=== PATIENT | female | born 1985 | race Caucasian/White ===

== ENCOUNTER 2025-01-15 09:55 | Outpatient (CLI) | payer OTHER, SELFPAY ==
--- NOTE | ~2025-01-15 | MM_ITS ---
EXAMINATION: MM screening marina BI w tawanna HISTORY: Screening TECHNIQUE: Craniocaudal and mediolateral oblique 3-D tomosynthesis images were obtained and synthetic 2-D images were generated. CAD analysis was submitted and interpreted. COMPARISON: No prior mammogram is available for comparison. BREAST PARENCHYMAL COMPOSITION: There are scattered areas of fibroglandular density. FINDINGS: Punctate calcifications are detected bilaterally, morphologically benign in appearance. Stable parenchymal pattern without suspicious microcalcifications, architectural distortion, discrete masses or significant asymmetry. IMPRESSION: 1. No mammographic evidence of malignancy. 2. Recommend routine screening mammography in one year. BI-RADS Category 2: Benign finding(s). Reviewed, dictated and finalized at location A.
--- OUTSIDE RECORDS SUMMARY | 2025-01-15 11:07 | XMS_ITS | Encounter Summary ---
Author Organization [facility] Address [address] [place] [address] Care Team Providers Care Concrete Pipe Making Machine Operator Name Role Phone Aranza Rico MD Primary Care Provider [phone] Reason for Visit * Reason Onset Date Comments Forms 12/17/2024 Encounter Details Date Type Department Care Team (Latest Contact Info) Description 12/17/2024 [employer] Message Enc [facility] Multis[facility]ialty Care - [place] [address] [address] [place] [address] Aranza Rico MD [address] [place] [address] [address] [place] [address] Letter of Medical Necessity Social History Tobacco Use Types Packs/Day Years Used Date Smoking Tobacco: Former Cigarettes 0.5 2 2 004 - 07/23/2008 Smokeless Tobacco: Never Comments:Counseled by Dr. Shania mata. Alcohol Use Standard Drinks/Week Comments Not Currently 0 (1 standard drink = 0.6 oz pur e alcohol) PHQ-2 Answer Date Recorded Patient Health Questionnaire-2 Score 0 10/07/2024 Comments No Sex and Gender Information Value Date Recorded Sex Assigned at Female 01/08/2025 9:05 AM CDT Legal Sex Female 11:43 AM CDT Gender Identity Female 01/08/2025 9:05 AM CDT Sexual Orientation Not on file documented as of this encounter Progress Notes * Meli Stringer MA - 12/18/2024 5:29 PM CST [employer] message sent with letter. 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 [employer] documented in this encounter Plan of Treatment Upcoming Encounters Date Type Department Care Team (Late st Contact Info) Description 07/11/2025 8:40 AM CDT Office Visit [facility] [place] [address] [address] [place] [address] Aranza Rico MD [address] [place] [address] [id number] documented as of this encounter Visit Diagnoses Not on filedocumented in this encounter Additional Health Concerns Assessment Noted Time PHQ-9 Depression Total Score: 1 10/07/20 24 12:45 PM [employer]OOKSE[employer] BLINDSTITCH documented as of this encounter Care Teams Concrete Pipe Making Machine Operator Relationship Specialty Start Date End Date Aranza Rico MD [address] [place] [address] [id number] PCP - General INTERNAL MEDICINE 07/18/24 documented as of this encounter
--- OUTSIDE RECORDS SUMMARY | 2025-01-15 11:07 | XMS_ITS | Clinical Summary ---
Author Organization [facility] Address [address] [place] [address] Care Team Providers Care Chassis Engineer Name Role Phone Aranza Rico MD Primary Care Provider [phone] Allergies No known active allergies Medications betamethasone dipropionate 0.05 % cream 08/07/20 22 Active betamethasone dipropionate augmented (DIPROLENE-AF) 0.05 % cream APPLY TO AFFECTED AREAS OF BODY ONCE OR TWICE DAILY NEEDED RASH. 02/26/20 24 Active Multiple Vitamin (MULTI VITAMIN DAILY OR) Take 1 tablet by mouth daily. Active Continuous Glucose Sensor (FREESTYLE LILIBETH 3 PLUS SENSOR) MiscIndications: Type 2 diabetes mellitus with hyperglycemia, without long-term current use of insulin ([facility]) Use daily to check fasting blood sugar. Okay to substitute. 2 each 11/11/19 25 Active spironolactone (ALDACTONE) 100 MG tablet Take 1 tablet (100 mg total) by mouth daily. 12/17/19 25 Active semaglutide (RYBELSUS) 7 MG tabletIndication s:Diabetes Mellitus Take 1 tablet (7 mg total) by mouth daily. Indications : Diabetes 30 tablet 6 01/09/20 25 Active rosuvastatin (CRESTOR) 5 MG tabletIndication s:Type 2 diabetes mellitus with hyperglycemia, without long-term current use of insulin ([facility]) Take 1 tablet (5 mg total) by mouth nightly at bedtime. 30 tablet 5 01/09/20 25 Active Semaglutide (RYBELSUS) 3 MG TabIndications:D iabetes Mellitus Take 3 mg by mouth daily. Indications : Diabetes 30 tablet 10/07/20 24 025 Discontinued(Al ternate therapy) Semaglutide (RYBELSUS) 7 MG TabIndications:D iabetes Mellitus Take 7 mg by mouth daily. Indications : Diabetes 30 tablet 2 10/07/20 24 025 Discontinued(Re order) semaglutide (RYBELSUS) 7 MG tabletIndication s:Diabetes Mellitus Take 1 tablet (7 mg total) by mouth daily. Indications : Diabetes 30 tablet 2 01/09/20 25 025 Discontinued Active Problems No known active problems Encounters Date Type Department Care Team Description 01/08/2025 9:00 AM CDT Office Visit [place] [phone] [address] [address] [place] [address] Aranza Rico MD Diabetes; Hyperlipidemia 01/08/2025 Travel 01/01/2025 Scan [facility] Scanned, [facility] Dilated Eye Exam (SCAN) 12/17/2024 MyChart Message [place] [phone] [address] [address] [place] [address] Aranza Rico MD Letter of Medical Necessity 11/11/2024 Telephone [place] [address] [address] [facility] [address] [place] [address] Aranza Rico MD Orders 11/08/2024 Telephone [place] [phone] [address] [address] [place] [address] Aranza Rico MD Referral 11/08/2024 [facility] [place] [id number] [facility] [address] [place] [address] Aranza Rico MD Dietitian 10/21/2024 [facility] [address] [facility] [address] [place] [address] Aranza Rico MD mammogram scheduling from Last 3 Months Immunizations Name Administration Dates Next Due Influenza Adult (Generic) 08/08/2024,09/05/2019 Pneumococcal (Prevnar 20) 01/08/2025 Tdap (Generic) 06/16/2020 Family History Medical History Relation Comments Stroke Father Stroke December Relation Status Comments Father Social History Tobacco Use Types Packs/Day Years Used Date Smoking Tobacco: Former Cigarettes 0.5 2 2 004 - 07/23/2008 Smokeless Tobacco: Never Tobacco Cessation:Counseling Given: Yes Comments:Counseled by Dr. Rico. Alcohol Use Standard Drinks/Week Comments Not Currently 0 (1 standard drink = 0.6 oz pur e alcohol) PHQ-2 Answer Date Recorded Patient Health Questionnaire-2 Score 0 01/08/2025 Comments No Sex and Gender Information Value Date Recorded Sex Assigned at Female 01/08/2025 9:05 AM CDT Legal Sex Female 11:43 AM CDT Gender Identity Female 01/08/2025 9:05 AM CDT Sexual Orientation Not on file Last Filed Vital Signs Vital Sign Reading Time Taken Comments Blood Pressure 113/69 01/08/2025 9:06 AM CDT Pulse 71 01/08/2025 9:06 AM CDT Temperature 36.4 C (97.5 F) 01/08/2025 9:06 AM CDT Respiratory Rate 16 01/08/2025 9:06 AM CDT Oxygen Saturation 99% 01/08/2025 9:06 AM CDT Inhaled Oxygen Concentration - - Weight 72.8 kg (160 lb 9.6 oz) 01/08/2025 9:06 A M CDT Height 177.8 cm (5' 10 ) 01/08/2025 9:06 AM CDT Body Mass Index 23.04 01/08/2025 9:06 AM CDT Plan of Treatment Upcoming Encounters Date Type Department Care Team (Late st Contact Info) Description 07/11/2025 8:40 AM CDT Office Visit [facility] Multispecialty Care - [place] [address] [address] [place] [address] [place] [address] [place] [address] [address] [place] [address] Health Maintenance Due Date Last Done Comments Cervical Cancer Screening Pap Smear (Age 30 to 64) Every 3 Years 1983 Hepatitis B Vaccines (1 of 3 - 19+ 3-dose series) 2002 Cervical Cancer Screening Pap with HPV Testing (Age 30 to 64) Every 5 Years 2013 Cervical Cancer Screening with HPV 2013 COVID-19 Vaccine (2 - season) 2024 09/23/2021 Hemoglobin A1C 04/07/2025 10/07/2024, 06/0 01/2024, 12/26/2023, Additional history exists Annual Physical 10/07/2025 10/07/2024 Kidney Health Evaluation 10/07/2025 10/07/2024 Lipid Panel 10/07/2025 10/07/2024, 03/26/2024 Mammogram Screening 01/14/2026 01/15/2024, Diabetes: Retinopathy Eye Exam 01/01/2027 01/01/2025 DTaP, Tdap and Td Vaccines (2 - Td or Tdap) 06/16/2030 06/16/2020 Influenza Adult Completed 08/08/2024, 09/05/2019 Hepatitis C Completed 10/07/2024 PHQ-2 (Physician [place]) Completed 01/08/2025 Pneumococcal Vaccine: Pediatrics (0 to 5 Years) and At-Risk Patients (6 to 64 Years) Completed 01/08/2025 HPV Vaccines Aged Out No longer eligi ble based on patient's age to complete this topic Meningococcal B Vaccine Aged Out No l onger eligible based on patient's age to complete this topic Meningococcal Vaccine Aged Out No ayana brain eligible based on patient's age to complete this topic RSV Immunizations Under 20 Months Aged Out No longer eligible based on patient's age to complete this topic Procedures Procedure Name Priority Date/Time Associated Diagnosis Comments DIABETIC RETINOPATHY EXAM (NEGATIVE)(SCAN ORDER) Routine 01/01/2025 HEPATITIS C ANTIBODY Routine 10/07/2024 11:49 AM PUBLIC SAFETY DISPATCHER Annual physical exam Establishing care with new doctor, encounter for General medical exam Drug therapy Encounter for hepatitis C screening test for low risk patient LIPID PANEL Routine 10/07/2024 11:49 AM PUBLIC SAFETY DISPATCHER Annual physical exam Establishing care with new doctor, encounter for General medical exam Drug therapy Screening for hyperlipidemia HEMOGLOBIN, GLYCOSYLATED Routine 10/07/2024 Type 2 diabetes mellitus with hyperglycemia, without long-term current use of insulin ([facility]) MAMMOGRAM GENERIC (SCAN ORDER) 01/15/2024 from Last 3 Months or Most Recently Relevant to Health Maintenance Results * DIABETIC RETINOPATHY EXAM (NEGATIVE) (01/01/2025) [facility] Scanned SCANNING Final Resu lt [facility] ONBASE * (ABNORMAL) LIPID PANEL (10/07/2024 11:49 AM PUBLIC SAFETY DISPATCHER) CHOLESTEROL 242(H) <200 MG/DL 10/07/2024 7:48 PM PUBLIC SAFETY DISPATCHER [facility] TRIGLYCERIDES 71 <150 MG/DL 10/07/2024 7:48 PM PUBLIC SAFETY DISPATCHER [facility] HDL 94 >40 MG/DL 10/07/2024 7:48 PM PUBLIC SAFETY DISPATCHER [facility] LDL-C 134(H) <100 MG/DL 10/07/2024 7:48 PM PUBLIC SAFETY DISPATCHER [facility] VLDL CALCULATION 14 5 - 28 MG/DL 10/07/2024 7:48 PM PUBLIC SAFETY DISPATCHER [facility] CHOL/HDL RATIO 2.6 0.0 - 4.0 10/07/2024 7:48 PM [facility] LDL/HDL 1.4 0.41 - 2.13 10/07/2024 7:48 PM PUBLIC SAFETY DISPATCHER [facility] NON HDL CHOLESTEROL 148(H) <140 MG/DL 10/07/2024 7:48 PM PUBLIC SAFETY DISPATCHER [facility] 10/07/2024 11:4 9 AM PUBLIC SAFETY DISPATCHER Aranza Rico MD LABORATORY Final Result [facility] [place] [address] [place] [address], [place] [phone] * HEPATITIS C ANTIBODY (10/07/2024 11:49 AM PUBLIC SAFETY DISPATCHER) HEPATITIS C AB NON-REACTI VE NON-REACT KENNY 10/07/2024 9:54 PM PUBLIC SAFETY DISPATCHER [facility] Comment: ANTIBODIES TO HCV NOT DETECTED. DOES NOT EXCLUDE THE POSSIBILITY OF EXPOSURE TO HCV. 10/07/2024 11:4 9 AM PUBLIC SAFETY DISPATCHER Aranza Rico MD LABORATORY Final Result [facility] [address] [place] [address], [place] [phone] [id number] * HEMOGLOBIN, GLYCOSYLATED (10/07/2024) HGB A1C 6.5 % [address] [place] 10/07/2024 Aranza Rico MD LABORATORY Final Result [address] [place] [address] [facility] [address] [place] [address], [place] [phone] * MAMMOGRAM GENERIC (SCAN ORDER) (01/15/2024) Anatomical Region Laterality Modality Other 01/15/2024 [facility] Scanned SCANNING Final Resu lt from Last 3 Months or Most Recently Relevant to Health Maintenance Insurance [facility] Care Teams Chassis Engineer Relationship Specialty Start Date End Date Aranza Rico MD [address] [facility] [address] [place] [address] PCP - General INTERNAL MEDICINE 07/18/24
--- OUTSIDE RECORDS SUMMARY | 2025-01-15 11:07 | XMS_ITS | Encounter Summary ---
Author Organization [facility] Address [address] [place] [address] Care Team Providers Care Laundromat Manager Name Role Phone Aranza Rico MD Primary Care Provider [phone] Encounter Details Date Type Department Care Team (Latest Contact Info) Description 10/21/2024 [employer] Message Enc [facility] Group Multispecialty Care - [place] [address] [address] [address] [place] [address] Aranza Rico MD [address] [place] [address] [address] [place], [place] [phone] mammogram scheduling Social History Tobacco Use Types Packs/Day Years [...] as of this encounter Progress Notes * Molly Ireland - 10/24/2024 6:36 PM CST Order was sent to [facility]. Patient was notified of the above and she can call to schedule at [phone]. Patient agreed upon. TCH MACHINE OPERATOR documented in this encounter Plan of Treatment Upcoming Encounters Date Type Department Care Team (Late st Contact Info) Description 07/11/2025 8:40 AM CDT Office Visit [facility] Multispecialty Care - [place] [address] [address] [address] [place] [address] Aranza Rico MD [address] [place] [address] documented as of this encounter Visit Diagnoses Not on filedocumented in this encounter Additional Health Concerns Assessment Noted Time PHQ-9 Depression Total Score: 1 10/07/20 24 12:45 PM STRETCH MACHINE OPERATOR documented as of this encounter Care Teams Laundromat Manager Relationship Specialty Start Date End Date Aranza Rico MD [address] [place] [address] PCP - General INTERNAL MEDICINE 07/18/24 documented as of this encounter
== END 2025-01-15 09:56 | disposition home or self-care (01) ==
LOC: ANHIMG 09:58
PROVIDERS: PCP Internal Medicine; Visit Provider Internal Medicine
DX: Z12.31 Encounter for screening mammogram for malignant neoplasm of breast (principal)
CPT/HCPCS: 77063; 77067